=== PATIENT | male | born 1950 | race Caucasian/White ===

== ENCOUNTER 2017-10-07 01:43 | Emergency (ER) | payer MEDICARE, OTHER ==
[2017-10-07 02:15] LABS: BASOPHILS % (AUTO) 0.3 %; EOSINOPHILS # (AUTO) 0.1 10^3/uL (0.0-0.7); EOSINOPHILS % (AUTO) 0.8 %; HGB - HEMOGLOBIN 15.8 g/dL (14.0-18.0); LYMPHOCYTES # (AUTO) 0.8 10^3/uL (1.5-3.5); LYMPHOCYTES % (AUTO) 6.7 %; MEAN CORPUSCULAR HEMOGLOBIN 30.8 pg (27.0-31.0); MEAN CORPUSCULAR HGB CONC 34.3 g/dL (32.0-36.0); MEAN CORPUSCULAR VOLUME 89.9 fL (80.0-94.0); MONOCYTES # (AUTO) 0.8 10^3/uL (0.0-1.0); MONOCYTES % (AUTO) 6.5 %; NEUTROPHILS # (AUTO) 10.4 10^3/uL (1.5-6.6); NEUTROPHILS % (AUTO) 85.7 %; PLT - PLATELET COUNT 204 10^3/uL (130-450); RED BLOOD COUNT 5.14 10^6/uL (4.70-6.10); RED CELL DISTRIBUTION WIDTH 13.6 % (12.0-15.0); WHITE BLOOD COUNT 12.1 x10^3/uL (4.8-10.8)
[2017-10-07 02:25] LABS: ALBUMIN 4.2 g/dL (3.2-5.5); ALBUMIN/GLOBULIN RATIO 1.4 (1.0-2.2); BILIRUBIN,TOTAL 0.9 mg/dL (0.2-1.0); CALCIUM 9.2 mg/dL (8.5-10.3); CREATININE 0.7 mg/dL (0.6-1.2); MAGNESIUM 2.2 mg/dL (1.7-2.8); PHOSPHORUS 1.2 mg/dL (2.5-4.6); TOTAL PROTEIN 7.1 g/dL (6.7-8.2)
[2017-10-07 02:32] LABS: PLATELET ESTIMATE, MANUAL NORMAL (130-450,000) (NORMAL); PLATELET MORPHOLOGY 1+ GIANT PLATELETS (NORMAL)
[2017-10-07] MEDS ORDERED: IOPAMIDOL-300 100 ML VIAL ONE (02:41)
[2017-10-07 03:03] LABS: BILIRUBIN,URINE NEGATIVE (NEGATIVE); GLUCOSE, URINE (UA) NEGATIVE (NEGATIVE); KETONES,URINE (UA) NEGATIVE (NEGATIVE); LEUKOCYTE ESTERASE, URINE NEGATIVE (NEGATIVE); NITRITE,URINE NEGATIVE (NEGATIVE); OCCULT BLOOD,URINE NEGATIVE (NEGATIVE); PROTEIN,URINE NEGATIVE (NEGATIVE); UROBILINOGEN,URINE 0.2 (NORMAL) E.U./dL (NORMAL)
[2017-10-07 03:05] LABS: CLARITY,URINE CLEAR (CLEAR)
[2017-10-07] MEDS ORDERED: IOPAMIDOL-300 100 ML VIAL IVP ONE (03:06)
[2017-10-07] MEDS ORDERED: DICYCLOMINE 10 MG CAPSULE PO STA (03:14)
[2017-10-07] MEDS ORDERED: MORPHINE 10 MG/ML VIAL IVP STA (03:14)
--- NOTE | 2017-10-07 03:21 | CT Report ---
Procedure Date: 10/07/2017 Accession Number: [id number] / [id number] Procedure: CT - Abdomen/Pelvis W/ CPT Code: FULL RESULT: EXAM: CT ABDOMEN AND PELVIS EXAM DATE: 10/07/2017 02:48 AM. CLINICAL HISTORY: Pain in the lower abdomen and pelvis. Small bowel movements which appeared black and tarry. COMPARISONS: ABDOMEN/PELVIS W/ 09/24/2012. TECHNIQUE: Routine helical CT imaging was performed through the abdomen and pelvis. IV contrast: 100 ML ISOVUE 300. Enteric contrast: No. Reconstructions: Coronal and sagittal. In accordance with CT protocol optimization, one or more of the following dose reduction techniques were utilized for this exam: automated exposure control, adjustment of mA and/or KV based on patient size, or use of iterative reconstructive technique. FINDINGS: Lung Bases: Mild bibasilar atelectasis. Liver: Fatty infiltration. Gallbladder/Bile Ducts: Unremarkable. Spleen: Normal. Pancreas: Normal. Adrenal Glands: Right adrenal is unremarkable. Benign-appearing left adrenal nodule is unchanged. Kidneys: Left renal cysts are unchanged. No masses or hydronephrosis. Peritoneal Cavity/Bowel: No bowel obstruction seen. Colonic diverticula. Focal sigmoid wall thickening suspicious for diverticulitis. No abscess seen. No free air or free fluid. No lymphadenopathy. Appendix appears normal. Pelvic Organs: Normal. The bladder and visualized pelvic organs are within normal limits. Vasculature: Mild to moderate atherosclerosis. Infrarenal abdominal aortic aneurysm measuring 4.2 x 4.0 cm. Right common iliac artery dilatation measuring 1.9 cm. Bones: No significant abnormality. Other: None. IMPRESSION: 1. Colonic diverticula with focal sigmoid wall thickening suspicious for diverticulitis. 2. No abscess seen. 3. Fatty liver. 4. Infrarenal aortic aneurysm measuring 4.2 x 4.0 cm. RADIA
[2017-10-07] MEDS ORDERED: metroNIDAZOLE 250 MG TABLET PO STA (03:46)
[2017-10-07] MEDS ORDERED: CIPROFLOXACIN 250 MG TABLET PO STA (03:46)
--- NOTE | 2017-10-07 04:09 | ED Physician Documentation ---
PD HPI ABD PAIN - Stated complaint Stated Complaint: ABD CRAMPS - Chief complaint Chief Complaint: Abd Pain - History obtained from History obtained from: Patient - History of Present Illness Timing - onset: How many days ago (2) Timing - details: Gradual onset, Still present Quality: Cramping, Aching Location: Suprapubic Worsened by: Eating Associated symptoms: No: Fever, Nausea, Vomiting Similar symptoms before: Has not had sx before Recently seen: Not recently seen - Additional information Additional information: Patient is a 66 year old male presenting to the emergency department for abdominal pain. patient states that the pain has been going on for the last few days. patient states that he took a laxative a few days ago and then today he started to have diarrhea and severe abdominal cramping so he called ems. Review of Systems Constitutional: denies: Fever, Chills GI: reports: Abdominal Pain, Nausea, Diarrhea. denies: Vomiting : denies: Dysuria, Frequency PD PAST MEDICAL HISTORY - Past Medical History Past Medical History: Yes Cardiovascular: [place] Respiratory: None Endocrine/Autoimmune: None GI: GERD, GI bleed : None HEENT: None Psych: Depression, Anxiety, Panic attacks Musculoskeletal: None Derm: None - Past Surgical History Past Surgical History: Yes Ortho: Other Cardiovascular: Coronary stent - Present Medications Home Medications: Ambulatory Orders Medication Instructions Recorded Confirmed Omeprazole [Prilosec] 20 mg PO DAILY 09/24/12 10/04/14 Rosuvastatin [Crestor] 10 mg PO ONCE 09/24/12 10/04/14 diltiaZEM [Cardizem] 70 mg PO BID 09/24/12 10/04/14 Azithromycin [Zithromax] 250 mg PO DAILY #6 tablet 10/04/14 Hydrocodone/Acetaminophen 1 - 2 each PO Q6H PRN #15 tablet 10/04/14 [Hydrocodon-Acetaminophen 5-325] Ciprofloxacin HCl [Cipro] 500 mg PO BID #14 tablet 10/07/17 Hydrocodone/Acetaminophen 1 - 2 each PO Q6H PRN #14 tablet 10/07/17 [Hydrocodon-Acetaminophen 5-325] Metronidazole [Flagyl] 500 mg PO TID #21 tablet 10/07/17 Ondansetron Odt [Zofran] 4 mg TL Q6H PRN #14 tablet 10/07/17 - Allergies Allergies/Adverse Reactions: Allergies Allergy/AdvReac Type Severity Reaction Status Date / Time No Known Drug Allergies Allergy Verified 10/07/17 01:54 - Social History Does the pt smoke?: No Smoking Status: Never smoker Does the pt drink ETOH?: Yes Does the pt have substance abuse?: No - POLST Patient has POLST: No PD ED PE NORMAL - Vitals Vital signs reviewed: Yes - General General: Alert and oriented X 3 - HEENT HEENT: Atraumatic - Cardiac Cardiac: RRR - Respiratory Respiratory: No respiratory distress - Derm Derm: Normal color, Warm and dry - Extremities Extremities: No deformity - Neuro Neuro: Alert and oriented X 3, No motor deficit, Normal speech Eye Opening: Spontaneous PD ED PE EXPANDED - General General: Alert, Anxious - HEENT HEENT: Dry mucous membranes - Abdomen Abdomen: Tender to palpation, Generalized/diffuse. No: Rebound, Guarding Results - Vitals Vitals: Vital Signs - 24 hr 10/07/17 01:50 Temperature 36.5 C Heart Rate 94 Respiratory 18 Rate Blood Pressure 169/90 H O2 Saturation 98 Oxygen O2 Source Room air - Labs Labs: Laboratory Tests 10/07/17 10/07/17 10/07/17 02:05 02:05 02:05 WBC 12.1 H RBC 5.14 Hgb 15.8 Hct 46.2 MCV 89.9 MCH 30.8 MCHC 34.3 RDW 13.6 Plt Count 204 MPV 10.0 Neut # (Auto) 10.4 H Lymph # (Auto) 0.8 L [place] # (Auto) 0.8 Eos # (Auto) 0.1 Baso # (Auto) 0.0 Absolute Nucleated RBC 0.00 Nucleated RBC % 0.0 Platelet Estimate NORMAL (130-450,000) Platelet Morphology 1+ GIANT PLATELETS Sodium 137 Potassium 3.5 Chloride 102 Carbon Dioxide 25 Anion Gap 10.0 BUN 8 Creatinine 0.7 Estimated GFR (MDRD) 112 Glucose 137 H Lactic Acid 1.1 Calcium 9.2 Phosphorus 1.2 L Magnesium 2.2 Total Bilirubin 0.9 AST 17 ALT 10 Alkaline Phosphatase 61 Total Protein 7.1 Albumin 4.2 Globulin 2.9 Albumin/Globulin Ratio 1.4 Lipase 39 Urine Color Urine Clarity Urine pH Ur Specific [place] Urine Protein Urine Glucose (UA) Urine Ketones Urine Occult Blood Urine Nitrite Urine Bilirubin Urine Urobilinogen Ur Leukocyte Esterase Ur Microscopic Review Urine Culture Comments 10/07/17 02:55 WBC RBC Hgb Hct MCV MCH MCHC RDW Plt Count MPV Neut # (Auto) Lymph # (Auto) [place] # (Auto) Eos # (Auto) Baso # (Auto) Absolute Nucleated RBC Nucleated RBC % Platelet Estimate Platelet Morphology Sodium Potassium Chloride Carbon Dioxide Anion Gap BUN Creatinine Estimated GFR (MDRD) Glucose Lactic Acid Calcium Phosphorus Magnesium Total Bilirubin AST ALT Alkaline Phosphatase Total Protein Albumin Globulin Albumin/Globulin Ratio Lipase Urine Color YELLOW Urine Clarity CLEAR Urine pH 8.0 H Ur Specific [place] 1.010 Urine Protein NEGATIVE Urine Glucose (UA) NEGATIVE Urine Ketones NEGATIVE Urine Occult Blood NEGATIVE Urine Nitrite NEGATIVE Urine Bilirubin NEGATIVE Urine Urobilinogen 0.2 (NORMAL) Ur Leukocyte Esterase NEGATIVE Ur Microscopic Review NOT INDICATED Urine Culture Comments NOT INDICATED - Rads (name of study) ct abd and pelvis Radiology: Final report received (findings concerning for diverticulitis) PD MEDICAL DECISION MAKING - ED course Complexity details: reviewed old records, reviewed results, re-evaluated patient , considered differential, d/w patient ED course: Patient was seen and examined at bedside. IV access was gained and labs were drawn. imaging was ordered. patient was treated with morphine and zofran. When patient returned from imaging results were reviewed and consistent with diverticulits. patient was treated with cipro and flagyl. Patient had no significant leukocytosis or acidosis. patient was able to tolerate PO without difficulty and was appropriate for trial of outpatient antibiotics. Patient was given detailed discharge and follow up instructions. patient felt comfortable with the plan and was stable for discharge with outpatient follow up. - Sepsis Event Vital Signs: Vital Signs - 24 hr 10/07/17 01:50 Temperature 36.5 C Heart Rate 94 Respiratory 18 Rate Blood Pressure 169/90 H O2 Saturation 98 Oxygen O2 Source Room air Departure - Departure Disposition: 01 Home, Self Care Clinical Impression: Diverticulitis of gastrointestinal tract Condition: Good Instructions: Diverticulitis Dc Follow-Up: Cesar Maldonado MD [Primary Care Provider] - Tomorrow Prescriptions: Ciprofloxacin HCl [Cipro] 500 mg PO BID #14 tablet Hydrocodone/Acetaminophen [Hydrocodon-Acetaminophen 5-325] 1 - 2 each PO Q6H PRN #14 tablet PRN Reason: pain Metronidazole [Flagyl] 500 mg PO TID #21 tablet Ondansetron Odt [Zofran] 4 mg TL Q6H PRN #14 tablet PRN Reason: Nausea / Vomiting Comments: Your symptoms today are being caused by diverticulitis. You had your first dose of antibiotics today and will need to be on them for at least the next week. you should call your doctor tomorrow to schedule a follow up appointment within the next three days. you should start with a clear diet and slowly progress. You cannot drink alcohol while taking theses antibiotics. you are being prescribed percocet for pain. You cannot drink alcohol, take any other sedatives, drive or operate heavy machinery while taking it. You should return to the emergency department for new, worsening or uncontrollable symptoms.
[2017-10-07 05:32] VITALS: BP 169/88
== END 2017-10-07 04:30 | disposition home or self-care (01) ==
LOC: ED 01:43
DX: K57.92 Diverticulitis of intestine, part unspecified, without perforation or abscess without bleeding (principal); I25.2 Old myocardial infarction; Z95.5 Presence of coronary angioplasty implant and graft
CPT/HCPCS: 74177; 80053; 81003; 83605; 83690; 83735; 84100; 85025; 96374; 99283; 99284; A9270; Q9967; 36415; 81001; 87086

== ENCOUNTER 2017-11-01 18:06 | Outpatient (CLI) | payer MEDICARE ==
--- NOTE | 2017-11-02 03:13 | Ultrasound Report ---
Procedure Date: 11/01/2017 Accession Number: [id number] / [id number] Procedure: US - Abdomen Complete CPT Code: FULL RESULT: EXAM: ABDOMEN ULTRASOUND EXAM DATE: 11/01/2017 07:30 PM. CLINICAL HISTORY: ABDOMINAL PAIN. COMPARISON: CT, 10/07/2017. TECHNIQUE: Real-time scanning was performed with static images obtained. FINDINGS: Liver: Normal in size and echotexture. 14.4 cm. Main portal vein flow: Hepatopetal. Gallbladder: Normal. No stones, wall thickening, or sonographic Gabriel's sign. Biliary System: Common bile duct measures 5 mm. No intrahepatic or extrahepatic ductal dilatation. Pancreas: Visualized portion is unremarkable. Kidneys: Right: 10.0 cm longitudinally. Normal. No contour-deforming mass, stones, or hydronephrosis. Left: 10.7 cm longitudinally. Multiple cysts measuring up to 2.2 x 1.3 x 1.9 cm. No contour-deforming solid mass, stones, or hydronephrosis. Spleen: 11.3 cm. Normal in size and echotexture. Aorta and Inferior Vena Cava: Inferior vena cava appears patent where seen. Distal abdominal aortic aneurysm measuring 3.5 x 4.2 cm as previously seen. Other: None. IMPRESSION: 1. Again seen is distal abdominal aortic aneurysm measuring 3.5 x 4.2 cm. 2. Left renal cysts measuring up to 2.2 x 1.3 x 1.9 cm. 3. No acute abnormality seen. RADIA
== END 2017-11-01 18:07 | disposition home or self-care (01) ==
LOC: DI 18:06
PROVIDERS: ATTEND Internal Medicine
DX: R10.32 Left lower quadrant pain (principal); I71.4 Abdominal aortic aneurysm, without rupture; N28.1 Cyst of kidney, acquired
CPT/HCPCS: 76700

== ENCOUNTER 2018-10-16 20:38 | Emergency (ER) | payer MEDICARE, OTHER ==
--- NOTE | 2018-10-16 21:07 | ED Physician Documentation ---
History of Present Illness - Stated complaint Stated Complaint: FLU SX - Chief complaint Chief Complaint: General - History obtained from History obtained from: Patient - History of Present Illness Timing: How many days ago (3) Pain level max: 7 Pain level now: 7 - Additonal information Additional information: states chills, headache, cough for the past 3 days. worse with exertion, better with rest. Has not taken anything for this. has history of hypertension and past PA. not on meds except aspirin. no nausea or vomiting. Review of Systems Constitutional: reports: Fever (subjective) Nose: reports: Rhinorrhea / runny nose, Congestion Respiratory: reports: Cough GI: denies: Vomiting, Diarrhea Skin: denies: Rash Musculoskeletal: denies: Neck pain, Back pain Neurologic: reports: Headache PD PAST MEDICAL HISTORY - Past Medical History Past Medical History: Yes Cardiovascular: [place] Respiratory: None Endocrine/Autoimmune: None GI: GERD, GI bleed : None HEENT: None Psych: Depression, Anxiety, Panic attacks Musculoskeletal: None Derm: None - Past Surgical History Past Surgical History: Yes Ortho: Other Cardiovascular: Coronary stent - Present Medications Home Medications: Ambulatory Orders Medication Instructions Recorded Confirmed Omeprazole [Prilosec] 20 mg PO DAILY 09/24/12 10/16/18 Hydrocodone/Acetaminophen 1 - 2 each PO Q6H PRN #14 tablet 10/07/17 10/16/18 [Hydrocodon-Acetaminophen 5-325] Albuterol Sulf [Ventolin Hfa 1 - 2 puffs INH Q4HR PRN #1 inhaler 10/16/18 Inhaler] Aspirin [Children's Aspirin] 1 tab PO DAILY 10/16/18 10/16/18 Benzonatate [Tessalon Perle] 100 - 200 mg PO TID PRN #30 capsule 10/16/18 predniSONE [Prednisone] 40 mg PO DAILY #10 tablet 10/16/18 - Allergies Allergies/Adverse Reactions: Allergies Allergy/AdvReac Type Severity Reaction Status Date / Time No Known Drug Allergies Allergy Verified 10/16/18 20:56 - Social History Does the pt smoke?: No Smoking Status: Never smoker Does the pt drink ETOH?: Yes Does the pt have substance abuse?: No - Immunizations Immunizations are current?: No Immunizations: TDAP >10years/unknown - POLST Patient has POLST: No PD ED PE NORMAL - Vitals Vital signs reviewed: Yes - General General: Alert and oriented X 3, No acute distress - HEENT HEENT: Moist mucous membranes - Neck Neck: Supple, no meningeal sign - Cardiac Cardiac: RRR - Respiratory Respiratory: No respiratory distress, Other (Very diminished breath sounds bilaterally) - Abdomen Abdomen: Soft, Non tender, Non distended - Derm Derm: Warm and dry - Extremities Extremities: No edema - Neuro Neuro: Alert and oriented X 3 Results - Vitals Vitals: Vital Signs - 24 hr 10/16/18 10/16/18 10/16/18 20:41 21:00 21:30 Temperature 36.6 C Heart Rate 84 79 76 Respiratory 16 13 17 Rate Blood Pressure 132/90 H 158/104 H 151/91 H O2 Saturation 98 100 99 10/16/18 10/16/18 21:47 22:15 Temperature 36.5 C Heart Rate 82 78 Respiratory 12 22 Rate Blood Pressure 133/81 H O2 Saturation 97 Oxygen O2 Source Room air - EKG (time done) 2101 Rate: Rate (enter#) (81) Rhythm: NSR [place]: Normal Intervals: Normal [place] QRS: Normal Ischemia: Normal ST segments - Rads (name of study) cxr Radiology: Prelim report reviewed, EMP read contemporaneously, See rad report (No acute cardiopulmonary abnormality demonstrated. Increased lung volumes suggesting underlying obstructive pulmonary disease. ) PD MEDICAL DECISION MAKING - ED course Complexity details: reviewed results, re-evaluated patient, considered differential, d/w patient ED course: 67-year-old male with what appears to be a viral upper respiratory infection. He is well-appearing, nontoxic. Afebrile. Very diminished lung sounds, improved with albuterol and DuoNeb and prednisone. Chest x-ray is consistent with COPD. Does have a smoking history in the past. Will place on steroids and albuterol for home. Patient counseled regarding signs and symptoms for which I believe and urgent re-evaluation would be necessary. Patient with good understanding of and agreement to plan and is comfortable going home at this time This document was made in part using voice recognition software. While efforts are made to proofread this document, sound alike and grammatical errors may occur. Departure - Departure Disposition: 01 Home, Self Care Clinical Impression: COPD with acute exacerbation Condition: Good Instructions: ED COPD Flare Follow-Up: Cesar Maldonado MD [Primary Care Provider] - Within 1 week Prescriptions: Albuterol Sulf [Ventolin Hfa Inhaler] 1 - 2 puffs INH Q4HR PRN #1 inhaler PRN Reason: Shortness Of Air/Wheezing Benzonatate [Tessalon Perle] 100 - 200 mg PO TID PRN #30 capsule PRN Reason: Cough predniSONE [Prednisone] 40 mg PO DAILY #10 tablet Comments: Use the medications as prescribed. Return if you worsen. Follow-up with your doctor for further evaluation and care. Thankfully there is no pneumonia on your chest x-ray today.
[2018-10-16] MEDS ORDERED: ACETAMINOPHEN 325 MG TABLET PO STA (21:09)
[2018-10-16] MEDS ORDERED: IPRATROPIUM/ALBUTEROL 3 ML NEB INH STA (21:28)
[2018-10-16] MEDS ORDERED: predniSONE 20 MG TABLET PO STA (22:00)
[2018-10-16] MEDS ORDERED: ALBUTEROL NEB 2.5 MG/3 ML INH STA (22:00)
[2018-10-16] MEDS ORDERED: IBUPROFEN 800 MG TABLET PO STA (22:00)
--- NOTE | 2018-10-16 22:00 | XRAY Report ---
Reason: cough Procedure Date: 10/16/2018 Accession Number: [id number] / [id number] Procedure: XR - Chest 2 View X-Ray CPT Code: 16531 FULL RESULT: EXAM: CHEST RADIOGRAPHY. EXAM DATE: 10/16/2018 09:30 PM. CLINICAL HISTORY: Weakness, cough, not feeling right for the past 2-3 days. COMPARISON: None. TECHNIQUE: 2 views. FINDINGS: Lungs/Pleura: Lung volumes are increased with diaphragmatic flattening. No focal opacities evident. No pleural effusion. No pneumothorax. Normal volumes. Mediastinum: Cardiac silhouette is within normal limits when accounting for lung volumes and technique. Other: Nonspecific small sclerotic focus about the left humeral head measuring 13 mm. IMPRESSION: No acute cardiopulmonary abnormality demonstrated. Increased lung volumes suggesting underlying obstructive pulmonary disease. RADIA
[2018-10-16 22:38] VITALS: BP 133/89
== END 2018-10-16 22:38 | disposition home or self-care (01) ==
LOC: ED 20:38
DX: J44.1 Chronic obstructive pulmonary disease with (acute) exacerbation (principal); Z87.891 Personal history of nicotine dependence; I10 Essential (primary) hypertension; I25.2 Old myocardial infarction; Z79.82 Long term (current) use of aspirin
CPT/HCPCS: 71046; 99283; 99284; A9270; J7512

== ENCOUNTER 2020-02-21 09:41 | Outpatient (CLI) | payer MEDICARE, OTHER | END 2020-02-21 09:42 | disposition critical access hospital (66) | LOC: EMS 09:41 | PROVIDERS: ATTEND Surgery | DX: R07.9 Chest pain, unspecified (principal); R20.0 Anesthesia of skin | CPT/HCPCS: A0425; A0427 ==

== ENCOUNTER 2020-02-21 10:15 | Inpatient (IN) | payer MEDICARE, OTHER ==
[2020-02-21] MEDS ORDERED: ENOXAPARIN 60 MG/0.6 ML SYRINGE SUBQ STA (10:24)
--- NOTE | 2020-02-21 10:27 | ED Physician Documentation ---
PD HPI CHEST PAIN - Stated complaint Stated Complaint: CHEST PAIN - History obtained from History obtained from: Patient - Additional information Additional information: 69-year-old gentleman with history of coronary disease, had an SD 6 years ago with stents x2. Was kind of lost to follow-up earlier this year with his heel cementer machine because of coronavirus and stopped taking blood pressure and statins because of side effects. He also has a history of COPD from smoking but quit smoking when he was 49 years old. For the last 2 days he has had intermittent pretty typical rest pressure with dizziness and shortness of breath. He is pain-free currently. Review of Systems Ten Systems: 10 systems reviewed and negative Constitutional: denies: Fever, Chills Throat: denies: Dental pain / toothache, Sore throat Cardiac: reports: Chest pain / pressure. denies: Palpitations, Pedal edema, Calf pain Respiratory: reports: Dyspnea. denies: Cough GI: denies: Abdominal Pain, Nausea PD PAST MEDICAL HISTORY - Past Medical History Cardiovascular: [place] Respiratory: None Endocrine/Autoimmune: None GI: GERD, GI bleed : None HEENT: None Psych: Depression, Anxiety, Panic attacks Musculoskeletal: None Derm: None - Past Surgical History Past Surgical History: Yes Ortho: Other Cardiovascular: Coronary stent - Present Medications Home Medications: Ambulatory Orders Medication Instructions Recorded Confirmed Omeprazole [Prilosec] 20 mg PO DAILY 09/24/12 02/21/20 Albuterol Sulf [Ventolin Hfa 1 - 2 puffs INH Q4HR PRN #1 inhaler 10/16/18 02/21/20 Inhaler] Aspirin [Children's Aspirin] 1 tab PO DAILY 10/16/18 02/21/20 predniSONE [Prednisone] 40 mg PO DAILY #10 tablet 10/16/18 - Allergies Allergies/Adverse Reactions: Allergies Allergy/AdvReac Type Severity Reaction Status Date / Time No Known Drug Allergies Allergy Verified 02/21/20 10:28 - Social History Does the pt smoke?: No Smoking Status: Never smoker Does the pt drink ETOH?: Yes Does the pt have substance abuse?: No - Immunizations Immunizations are current?: No Immunizations: TDAP >10years/unknown - POLST Patient has POLST: No PD ED PE NORMAL - Vitals Vital signs reviewed: Yes - General General: Alert and oriented X 3, No acute distress - HEENT HEENT: PERRL, EOMI - Neck Neck: Supple, no meningeal sign, No bony TTP - Cardiac Cardiac: RRR, No murmur - Respiratory Respiratory: No respiratory distress, Clear bilaterally - Abdomen Abdomen: Normal bowel sounds, Soft, Non tender - Back Back: No CVA TTP, No spinal TTP - Derm Derm: Normal color, Warm and dry - Extremities Extremities: No edema, No calf tenderness / cord - Neuro Neuro: Alert and oriented X 3, No motor deficit, No sensory deficit, Normal speech - Psych Psych: Normal mood, Normal affect Results - Vitals Vitals: Vital Signs - 24 hr 02/21/20 10:14 Temperature 36.6 C Heart Rate 87 Respiratory 11 L Rate Blood Pressure 167/85 H O2 Saturation 98 Oxygen O2 Source Room air - EKG (time done) 1024 Rate: Rate (enter#) (79) Rhythm: NSR [place]: RAD Intervals: Normal [place] QRS: Normal Ischemia: Normal ST segments Computer interpretation: Agree with computer - Labs Labs: Laboratory Tests 02/21/20 02/21/20 02/21/20 10:39 10:39 10:39 WBC 6.6 RBC 5.25 Hgb 16.5 Hct 48.3 MCV 92.0 MCH 31.4 H MCHC 34.2 RDW 13.9 Plt Count 197 MPV 11.1 Neut # (Auto) 4.4 Lymph # (Auto) 1.4 L [place] # (Auto) 0.5 Eos # (Auto) 0.2 Baso # (Auto) 0.1 Absolute Nucleated RBC 0.00 Nucleated RBC % 0.0 Sodium 141 Potassium 4.1 Chloride 107 Carbon Dioxide 26 Anion Gap 8.0 BUN 8 Creatinine 0.8 Estimated GFR (MDRD) 96 Glucose 101 H Calcium 9.5 Total Bilirubin 0.8 AST 17 ALT 14 Alkaline Phosphatase 51 Troponin I High Sens 5.2 Total Protein 6.9 Albumin 4.1 Globulin 2.8 Albumin/Globulin Ratio 1.5 Lipase 40 - Rads (name of study) 1v chest Radiology: EMP read contemporaneously (hyperexpansion, NAD) PD MEDICAL DECISION MAKING - ED course ED course: 69-year-old gentleman with known coronary disease presents with pretty typical rest pain that is intermittent for the last couple of days. No objective evidence of ischemia by EKG or initial enzymes. He was administered some beta- riya and Lovenox here. He got aspirin on the way here. He was pain-free throughout his ED stay. Case was discussed by phone with Dr. Barraza, on-call for his heel cementer machine, Dr. Quezada. Recommended obs stay for rule out and stress. Spoke with Dr. Diaz for same at 12:22 PM. Departure - Departure Disposition: ED Place in Observation Clinical Impression: Chest pain Qualifiers: Chest pain type: unspecified Qualified Code(s): R07.9 - Chest pain, unspecified Condition: Stable
[2020-02-21 10:47] LABS: BASOPHILS # (AUTO) 0.1 10^3/uL (0.0-0.1); BASOPHILS % (AUTO) 0.8 %; EOSINOPHILS # (AUTO) 0.2 10^3/uL (0.0-0.7); EOSINOPHILS % (AUTO) 3.2 %; HGB - HEMOGLOBIN 16.5 g/dL (14.0-18.0); LYMPHOCYTES # (AUTO) 1.4 10^3/uL (1.5-3.5); LYMPHOCYTES % (AUTO) 20.8 %; MEAN CORPUSCULAR HEMOGLOBIN 31.4 pg (27.0-31.0); MEAN CORPUSCULAR HGB CONC 34.2 g/dL (32.0-36.0); MEAN PLATELET VOLUME 11.1 fL (7.4-11.4); MONOCYTES # (AUTO) 0.5 10^3/uL (0.0-1.0); MONOCYTES % (AUTO) 8.1 %; NEUTROPHILS # (AUTO) 4.4 10^3/uL (1.5-6.6); NEUTROPHILS % (AUTO) 66.8 %; PLT - PLATELET COUNT 197 10^3/uL (130-450); RED BLOOD COUNT 5.25 10^6/uL (4.70-6.10); RED CELL DISTRIBUTION WIDTH 13.9 % (12.0-15.0); WHITE BLOOD COUNT 6.6 x10^3/uL (4.8-10.8)
--- NOTE | 2020-02-21 10:47 | XRAY Report ---
PROCEDURE: Chest 1 View X-Ray INDICATIONS: Chest Pain TECHNIQUE: 2 AP views of the chest acquired. COMPARISON: Chest radiographs 10/16/2018 FINDINGS: Surgical changes and devices: None. Lungs and pleura: No pleural effusions or pneumothorax. Lungs are mildly hyperexpanded and clear. Mediastinum: Mediastinal contours appear normal. Heart size is normal. Bones and chest wall: No suspicious bony lesions. Overlying soft tissues appear unremarkable. IMPRESSION: No acute cardiopulmonary abnormality. Mildly hyperexpanded lungs can be seen in the setting of COPD. Reviewed by: Adi Jama MD on 02/21/2020 9:45 AM [facility] Approved by: Adi Jama MD on 02/21/2020 9:45 AM [facility] Station ID: [id number]
[2020-02-21 11:01] LABS: ALBUMIN 4.1 g/dL (3.2-5.5); ALBUMIN/GLOBULIN RATIO 1.5 (1.0-2.2); BILIRUBIN,TOTAL 0.8 mg/dL (0.2-1.0); CALCIUM 9.5 mg/dL (8.5-10.3); CREATININE 0.8 mg/dL (0.6-1.2); TOTAL PROTEIN 6.9 g/dL (6.7-8.2)
[2020-02-21 12:27] LABS: C. PNEUMONIAE- RESP PCR PANEL NOT DETECTED
[2020-02-21] MEDS ORDERED: ONDANSETRON 4 MG/2 ML VIAL IVP PRN (12:48)
[2020-02-21] MEDS ORDERED: SODIUM CHLORIDE FLUSH 0.9% 10 ML SYRINGE IVP PRN (12:48)
[2020-02-21] MEDS ORDERED: ALBUTEROL NEB 2.5 MG/3 ML INH PRN (13:25)
--- NOTE | 2020-02-21 17:18 | PHARMACY PROGRESS NOTE ---
- Best Possible Medication History Admit Date and Time: 02/21/20 1248 Processed by: Pharmacy Medication History completed: Yes Patient Interview: Completed Secondary Source(s): Insurance records As the person ultimately responsible for medication therapy, providers are able to order a medication from an existing home medication list in [facility] via the "Reconcile Routine" prior to Confirmation of that medication by it application support analyst. Such practice is discouraged except when the physician, in their clinical judgment, deems that a medical need exists for a medication without regard to previous use.
[2020-02-21] MEDS: SODIUM CHLORIDE FLUSH 0.9% 10 ML SYRINGE IVP SCH ×2 (17:30→23:55)
[2020-02-21] MEDS: NITROGLYCERIN 2% PASTE TOP SCH ×2 (17:31→23:55)
[2020-02-21] MEDS: ACETAMINOPHEN 325 MG TABLET PO PRN ×2 (17:45→21:56)
--- NOTE | 2020-02-21 20:23 | HISTORY & PHYSICAL EXAMINATION ---
DATE OF SERVICE: 02/21/2020 Physician: Velma Diaz MD HISTORY OF PRESENT ILLNESS: This is a 69-year-old white male with a history of coronary artery disease with an SD 6 years ago that led to coronary stenting. He stated that his anginal symptoms continued for several weeks after that and a repeat angiogram was eventually done and he did need a second stent. After that, his anginal symptoms subsided. Approximately 6-12 months ago, he stopped his statin and his other medication, (presumably his metoprolol); stopped the statin because it gave him malaise and possibly also the other one. He was scheduled to see a new document reviewer for management in Apr of this year, but then the COVID pandemic began and that cardiology office visit was canceled and has not been rescheduled. The patient is usually very active, does all his own errands and active around the house. Approximately a week ago, he started to develop similar symptoms as he had with his SD, which were waxing and waning chest pressure that can last for approximately 15 seconds and has associated shortness of breath and lightheadedness, occurring after he "over did it". He took some old NTG sublingual which helped. One of the episodes of lightheadedness made him have near syncope with a blackout of vision and he held onto his appliance and was able to recover without syncope, then laid down on the couch and felt better that day. He has been taking his aspirin continuously throughout this time. He made sure to take extra Baby aspirin during one of the days where he felt specifically bad, which was 3 days ago. He continued to have those symptoms yesterday and then finally today, on day #3 with these episodes, came to the ER. The emergency room doctor reached out to his covering document reviewer regarding this presentation of accelerating angina and the document reviewer advised that the patient undergo a stress test here rather than be sent directly for coronary angiogram. The patient denies any CHF symptoms such as orthopnea or leg edema. He denies palpitations. There is no dyspnea on exertion unless he has a COPD exacerbation and he uses inhalers only p.r.n. ALLERGIES: ATORVASTATIN, which caused possible myalgias by his report. MEDICATIONS: 1. Baby aspirin daily. 2. Omeprazole 20 mg daily. 3. He used to be on metoprolol, but stopped this approximately 6-12 months ago. 4. He used to be on Lipitor, but stopped this about 6-12 months ago. 5. There is occasional use of inhalers, but they are not currently refilled. FAMILY HISTORY: Multiple family members have early coronary artery disease in their 50s. There is a history of dyspepsia in several family members as well. SOCIAL HISTORY: The patient is an ex-smoker who quit 10 years ago. There is no alcohol abuse history. He uses no illicit drugs. He lives alone, is a , his 6 years ago of cancer. REVIEW OF SYSTEMS: A comprehensive review of systems was performed and the pertinent positives are listed, the rest are negative. PHYSICAL EXAM: GENERAL: Cachectic white male who has had 3 episodes of his waxing and waning anginal type symptoms of chest pressure while we are having this discussion; one was associated with a hot flash/diaphoresis, another was associated with shortness of breath and the third was associated with lightheadedness and during that time, his palpable pulse radially did decrease somewhat in amplitude. VITAL SIGNS: Blood pressure 130/80, heart rate 80-85 in sinus rhythm. He is afebrile. On room air his O2 saturation is 97%. HEENT: Reveals cachexia. Oral mucosa is moist. He has good dentition. NECK: No JVD in a vertical position. No carotid bruits. CHEST: Clear. HEART: Normal heart sounds without murmurs. ABDOMEN: Soft, nontender. No organomegaly. EXTREMITIES: No clubbing, cyanosis or edema. NEUROLOGIC: Grossly intact. LABORATORY DATA: Normal electrolytes. Normal BUN and creatinine. First high sensitivity-troponin is 5.2, the next is 8.7. Normal liver tests and lipase. CBC within normal limits. No urinalysis was done. No INR was done. He has a COVID test that is negative. EKG: Normal sinus rhythm and he has a vertical axis of 90 degrees, left atrial enlargement, no ST or T-wave changes. Since the last EKG, the axis is more vertical and no other new changes are present. CHEST X-RAY: No acute cardiopulmonary abnormality is seen except mildly hyperexpanded lungs. IMPRESSION\\DIAGNOSES: 1. Unstable angina pectoris, he has acceleration of his typical anginal symptoms and they are occurring at rest. 2. History of coronary artery disease and stent. 3. Old myocardial infarction. 4. STATIN ALLERGY. 5. History of chronic obstructive pulmonary disease. PLAN: Place the patient in Observation status on telemetry. Watch for arrhythmias, especially during the episodes of lightheadedness. Start topical nitroPaste at 0.25 or 0.5 inches topically q.6h. If this suppresses the symptoms, recommend proceeding to a stress test, as recommended by his document reviewer. Otherwise, if there is no improvement, then he would need transfer to the ICU for IV nitroglycerin drip and then management with direct transfer for coronary angiography. This plan was discussed with the patient, he is agreeable to plan. Start Lovenox, at DVT prophylaxis dose, increase to therapeutic dose if there are accelerating symptoms. Continue with his daily aspirin, hold the statin because of his side effects, hold beta riya because of episodes of lightheadedness, which may be hypotension. Check a fasting lipid panel in a.m. DEEP VENOUS THROMBOSIS PROPHYLAXIS: Pharmacotherapy. CODE STATUS: FULL CODE. ATTESTATION: Patient is expected to be discharged or transferred to another facility within 96 hours: Yes. cc: MD Jony Ordoñez MD TD: 02/21/2020 20:08 [email or web address]
[2020-02-21] MEDS: FAMOTIDINE 20 MG TABLET PO SCH (21:13)
[2020-02-21] MEDS: METOPROLOL TARTRATE 25 MG TABLET PO SCH (21:13)
[2020-02-22] MEDS: IBUPROFEN 400 MG TABLET PO PRN ×2 (01:01→11:16)
[2020-02-22] MEDS: NITROGLYCERIN 2% PASTE TOP SCH ×3 (05:07→17:44)
[2020-02-22 05:11] LABS: CHOL/HDL RATIO 4.8 (<5.0); CHOLESTEROL 224 mg/dL; HDL CHOLESTEROL 47 mg/dL; LDL CHOLESTEROL,CALCULATED 161 mg/dL; LDL/HDL RATIO 3.4 (<3.6); VLDL CHOLESTEROL 16 mg/dL
[2020-02-22] MEDS: METOPROLOL TARTRATE 25 MG TABLET PO SCH ×2 (07:44→22:54)
[2020-02-22] MEDS: ASPIRIN CHEW 81 MG TABLET PO SCH (08:53)
[2020-02-22] MEDS: FAMOTIDINE 20 MG TABLET PO SCH ×2 (08:53→22:01)
[2020-02-22] MEDS: SODIUM CHLORIDE FLUSH 0.9% 10 ML SYRINGE IVP SCH ×2 (08:53→16:18)
[2020-02-22] MEDS ORDERED: ENOXAPARIN 40 MG/0.4 ML SYRINGE SUBQ SCH ×2 (09:00→21:00)
--- NOTE | 2020-02-22 18:25 | Nuclear Medicine Report ---
PROCEDURE: Rest and exercise myocardial perfusion SPECT with gated imaging and ejection fraction INDICATIONS: chest pain RADIOPHARMACEUTICAL: 8.5 mCi Tc-99m Myoview IV at rest and 24.5 mCi Tc-99m Myoview IV at peak exerci se. [id number] was performed. TECHNIQUE: Radiopharmaceutical was injected at peak stress test, and also at rest. SPECT images wer e obtained. SPECT myocardial perfusion images were displayed in short axis, horizontal long axis, an d vertical long axis views. Gated images were reviewed using Auto[employer] software. COMPARISON: None available. FINDINGS: Raw data: There is good myocardial labeling by radiotracer. No significant motion artifacts. Lung- to-heart ratio is 0.26 (normal is less than 0.38 for tetrafosmin tracer). Left ventricle function: Gated images demonstrate normal left ventricle wall thickening. No segment al wall motion abnormality. No transient ischemic dilation; TID is 1.29 (normal less than 1.3). The left ventricle resting end-diastolic volume is normal. Left ventricle stress ejection fraction is 5 1%; normal values are above 45%. Myocardial perfusion: There is normal distribution of activity in the left and right ventricular jorge cardium. No fixed or reversible perfusion defects. IMPRESSION: 1. Normal myocardial perfusion images. No perfusion defect to suggest myocardial ischemia or infarct. 2. Normal left ventricular volume and ejection fraction. There is borderline abnormal TID (transient ischemic dilation) score. TID in the absence of perfusion defect may be associated with balanced trip le-vessel coronary artery disease. Recommend clinical correlation. 3. Please correlate with stress EKG result. PQRS ATTESTATIONS: Measure 322 - Is this imaging test primarily performed on a low-risk surgery patient for preoperative evaluation within 30 days preceding their low-risk non-cardiac surgery? Low-risk surgery is defined as cardiac or myocardial infarction less than 1%, including (but not limited to) endoscopic pr ocedures, superficial procedures, cataract surgery, and excisional breast surgery: Answer: No Measure 323 - Is this imaging test performed primarily for the monitoring of an asymptomatic patient who had percutaneous coronary intervention on the visit date or within 2 years of the visit date? An swer: No Measure 324 - Is this imaging test performed primarily for the initial detection and risk assessment on an asymptomatic, low coronary heart disease patient? Low CHD risk definition = clinicians should consider the maximum number of available patient factors used to estimate risk based on [place] (A TP III criteria), typically age, gender, diabetes, smoking status, and use of blood pressure medicati on, and integrate age appropriate estimates for missing elements, such as LDL or standard blood press ure. Answer: No Reviewed by: George Evangelista MD on 02/22/2020 6:24 PM PST Approved by: George Evangelista MD on 02/22/2020 6:24 PM PST Station ID: [id number]
[2020-02-22] MEDS ORDERED: NITROGLYCERIN SL 0.4 MG TABLET SL PRN (18:35)
--- NOTE | 2020-02-22 18:37 | PROVIDER PROGRESS NOTE ---
Assessment/Plan - Problem List (1) Unstable angina pectoris Assessment/Plan: Yesterday starting nitro paste helped relieve his resting angina quickly and he had no more during the night. He then developed a headache and by 4 AM he wanted the Nitropaste discontinued. He underwent his stress test today which was abnormal showing transient ischemic dilatation and balanced perfusion which means balanced three-vessel significant coronary artery disease is present. Patient knew that there was 1 significant lesion left, after his last angio when he needed stenting of 2 blood vessels, 6 years ago. He will not be discharged, will make him an Inpatient for further management of angina, which was accelerating and unstable. Will resume a statin, resume meds for blood pressure control (and will choose beta-riya for post OR management), continue aspirin and start sublingual nitroglycerin prn, stop the NTPaste. Will work on getting him transferred for coronary angiogram in the morning (2) History of heart artery stent Assessment/Plan: He underwent stenting when he had his angiogram 6 to 7 years ago. He has not had cardiology follow-up since that time, was supposed to reestablish with a new system configuration specialist in 2019 then it was all postponed because of Covid. Patient used to be on metoprolol which she stopped on its own and stopped statin because of side effects, presumably myalgias. He has continued on his aspirin and he has "old bottles of nitro glycerin s ublingual". Will resume metoprolol, statin in the form of pravastatin, continue aspirin and proceed to stress testing>>done earlier today (3) Old OR (myocardial infarction) Assessment/Plan: As per history. (4) Allergy to statin medication Assessment/Plan: As per his description. (5) Hypertension, uncontrolled Assessment/Plan: Patient had very elevated blood pressures during the stress test, 1 60-1 70 at rest and went over 200 with exercise. Nitrates and beta-blockers will be resumed (6) Hyperlipidemia LDL goal <70 Assessment/Plan: The patient has not taken a statin for many years. His LDL is greater than 160. I reviewed proper diet and have ordered a dietitian consult to help him with this. I advised that he take a water-soluble statin, pravastatin which is less likely to give myalgias. The patient agrees. Also as an outpatient, he could take co-Q10 for myalgia treatment. If pravastatin continues to be a problem, then at least red yeast rice should be used, which I discussed with him. (7) Hot flash in male Assessment/Plan: We will check a morning total testosterone level. Further work-up needs to be done as an outpatient with his PCP, he was told. (8) Cachexia Assessment/Plan: Patient admitted to me that when his 6 years ago, he stopped taking care of himself, did not eat the right things, stopped taking his medications as described above and did not care if he . Over the last 2 years he has had a better disposition, never had suicidal ideations he says. Dietary consult ordered. (9) COPD without exacerbation Assessment/Plan: As needed inhaler ordered - Current Meds Current Meds: Current Medications Generic Name Dose Route Start Last Admin Trade Name Freq PRN Reason Stop Dose Admin Acetaminophen 650 mg 02/21/20 12:48 02/21/20 21:56 Acetaminophen 325 Mg Tablet PO 650 mg Q4HR PRN Administration Pain 1 to 4 Albuterol 2.5 mg 02/21/20 13:25 02/21/20 15:58 Albuterol Neb 2.5 Mg/3 Ml INH 2.5 mg Q4HR PRN Administration Shortness of Air/Wheezing Aspirin 81 mg 02/22/20 09:00 02/22/20 08:53 Aspirin Chew 81 Mg Tablet PO 81 mg DAILY VANESSA Administration Enoxaparin Sodium 40 mg 02/22/20 09:00 02/22/20 08:53 Enoxaparin 40 Mg/0.4 Ml Syringe SUBQ Not Given DAILY VANESSA Famotidine 20 mg 02/21/20 21:00 02/22/20 08:53 Famotidine 20 Mg Tablet PO 20 mg BID VANESSA Administration Ibuprofen 400 mg 02/22/20 00:48 02/22/20 11:16 Ibuprofen 400 Mg Tablet PO 400 mg Q6HR PRN Administration PAIN Metoprolol Tartrate 12.5 mg 02/21/20 21:00 02/22/20 07:44 Metoprolol Tartrate 25 Mg Tablet PO Not Given BID VANESSA Sodium Chloride 10 ml 02/21/20 17:00 02/22/20 16:18 Sodium Chloride Flush 0.9% 10 Ml Syringe IVP 10 ml 0100,0900,1700 VANESSA Administration - Lab Result Fish Bone Diagrams: 02/21/20 10:39 02/21/20 10:39 - Additional Planning My Orders: My Active Orders 02/21/20 21:00 Famotidine [Pepcid] 20 mg PO BID Metoprolol Tartrate [Lopressor] 12.5 mg PO BID 02/22/20 09:00 Aspirin Chewable [St Mychal Aspirin] 81 mg PO DAILY Enoxaparin [Lovenox] 40 mg SUBQ DAILY 02/22/20 10:49 Nutrition Consult [CONS] Routine 02/22/20 Lunch DIET [Regular Diet] [DIET] 02/22/20 18:22 Telemetry- [RC] Q4HR 02/22/20 18:35 Nitroglycerin [Nitrostat] 0.4 mg SL Q5MIN PRN 02/22/20 21:00 Metoprolol Succinate [Toprol Xl] 12.5 mg PO BID Pravastatin [Pravachol] 40 mg PO QPM 02/23/20 Breakfast DIET [Cardiac Diet] [DIET] Subjective - Subjective Patient Reports: Feeling Better (He felt better in the morning, he did have an episode of resting chest pressure several hours after having the stress test in the afternoon. He does not want to stay on Nitropaste, it is giving him a headache not relieved with Tylenol.) Objective Vital Signs: Vital Signs - 24 hr 02/21/20 02/21/20 02/22/20 20:05 21:13 00:00 Temperature 36.5 C 36.4 C L Heart Rate [ 72 Brachial] Heart Rate [ 80 Monitoring electrodes] Respiratory 16 16 Rate Blood Pressure 135/90 H Blood Pressure 135/90 H 138/80 H [Right Brachial artery] O2 Saturation 96 96 02/22/20 02/22/20 02/22/20 04:00 08:17 16:00 Temperature 36.5 C 36.6 C 36.7 C Heart Rate [ 74 76 95 Brachial] Heart Rate [ Monitoring electrodes] Respiratory 20 18 18 Rate Blood Pressure Blood Pressure 143/91 H 139/86 H 138/84 H [Right Brachial artery] O2 Saturation 97 97 97 Oxygen O2 Source Room air I&O (Last 24 Hrs): Intake and Output Totals x24h 02/20/20 02/21/20 02/22/20 23:59 23:59 23:59 Intake Total 240 Output Total 300 Balance -60 General: Alert, Oriented x3, Other (Cachectic) HEENT: Atraumatic, Mucous membr. moist/pink Neck: Supple, No JVD Neuro: Alert, Non Focal Cardiovascular: Regular rate, No murmurs Abdomen: Normal bowel sounds, Soft Extremities: No edema - Results Results: Laboratory Results WBC 6.6 x10^3/uL (4.8-10.8) 02/21/20 10:39 RBC 5.25 10^6/uL (4.70-6.10) 02/21/20 10:39 Hgb 16.5 g/dL (14.0-18.0) 02/21/20 10:39 Hct 48.3 % (42.0-52.0) 02/21/20 10:39 MCV 92.0 fL (80.0-94.0) 02/21/20 10:39 MCH 31.4 pg (27.0-31.0) H 02/21/20 10:39 MCHC 34.2 g/dL (32.0-36.0) 02/21/20 10:39 RDW 13.9 % (12.0-15.0) 02/21/20 10:39 Plt Count 197 10^3/uL (130-450) 02/21/20 10:39 MPV 11.1 fL (7.4-11.4) 02/21/20 10:39 Neut # (Auto) 4.4 10^3/uL (1.5-6.6) 02/21/20 10:39 Lymph # (Auto) 1.4 10^3/uL (1.5-3.5) L 02/21/20 10:39 Todd # (Auto) 0.5 10^3/uL (0.0-1.0) 02/21/20 10:39 Eos # (Auto) 0.2 10^3/uL (0.0-0.7) 02/21/20 10:39 Baso # (Auto) 0.1 10^3/uL (0.0-0.1) 02/21/20 10:39 Absolute Nucleated RBC 0.00 x10^3/uL 02/21/20 10:39 Nucleated RBC % 0.0 /100WBC 02/21/20 10:39 Sodium 141 mmol/L (135-145) 02/21/20 10:39 Potassium 4.1 mmol/L (3.5-5.0) 02/21/20 10:39 Chloride 107 mmol/L (101-111) 02/21/20 10:39 Carbon Dioxide 26 mmol/L (21-32) 02/21/20 10:39 Anion Gap 8.0 (6-13) 02/21/20 10:39 BUN 8 mg/dL (6-20) 02/21/20 10:39 Creatinine 0.8 mg/dL (0.6-1.2) 02/21/20 10:39 Estimated GFR (MDRD) 96 (>89) 02/21/20 10:39 Glucose 101 mg/dL (70-100) H 02/21/20 10:39 Calcium 9.5 mg/dL (8.5-10.3) 02/21/20 10:39 Total Bilirubin 0.8 mg/dL (0.2-1.0) 02/21/20 10:39 AST 17 IU/L (10-42) 02/21/20 10:39 ALT 14 IU/L (10-60) 02/21/20 10:39 Alkaline Phosphatase 51 IU/L (42-121) 02/21/20 10:39 Troponin I High Sens 8.7 ng/L (2.3-19.7) 02/21/20 13:20 Total Protein 6.9 g/dL (6.7-8.2) 02/21/20 10:39 Albumin 4.1 g/dL (3.2-5.5) 02/21/20 10:39 Globulin 2.8 g/dL (2.1-4.2) 02/21/20 10:39 Albumin/Globulin Ratio 1.5 (1.0-2.2) 02/21/20 10:39 Triglycerides 81 mg/dL (-149) 02/22/20 04:30 Cholesterol 224 mg/dL (-199) H 02/22/20 04:30 LDL Cholesterol, Calc 161 mg/dL (-129) H 02/22/20 04:30 VLDL Cholesterol 16 mg/dL 02/22/20 04:30 HDL Cholesterol 47 mg/dL (60-) L 02/22/20 04:30 LDL/HDL Ratio 3.4 (<3.6) 02/22/20 04:30 Cholesterol/HDL Ratio 4.8 (<5.0) 02/22/20 04:30 Lipase 40 U/L (22-51) 02/21/20 10:39 Nasal Adenovirus (PCR) NOT DETECTED 02/21/20 11:27 Nasal B. parapertussis DNA (PCR) NOT DETECTED 02/21/20 11:27 Nasal Coronavir 229E PCR NOT DETECTED 02/21/20 11:27 Nasal Coronavir HKU1 PCR NOT DETECTED 02/21/20 11:27 Nasal Coronavir NL63 PCR NOT DETECTED 02/21/20 11:27 Nasal Coronavir OC43 PCR NOT DETECTED 02/21/20 11:27 Nasal Enterovir/Rhinovir PCR NOT DETECTED 02/21/20 11:27 Nasal Influenza B PCR NOT DETECTED 02/21/20 11:27 Nasal Influenza A PCR NOT DETECTED 02/21/20 11:27 Nasal Parainfluen 1 PCR NOT DETECTED 02/21/20 11:27 Nasal Parainfluen 2 PCR NOT DETECTED 02/21/20 11:27 Nasal Parainfluen 3 PCR NOT DETECTED 02/21/20 11:27 Nasal Parainfluen 4 PCR NOT DETECTED 02/21/20 11:27 Nasal RSV (PCR) NOT DETECTED 02/21/20 11:27 Nasal B.pertussis DNA PCR NOT DETECTED 02/21/20 11:27 Nasal C.pneumoniae (PCR) NOT DETECTED 02/21/20 11:27 Bhanu Human Metapneumo PCR NOT DETECTED 02/21/20 11:27 Nasal M.pneumoniae (PCR) NOT DETECTED 02/21/20 11:27 Nasal SARS-CoV-2 (PCR) NOT DETECTED 02/21/20 11:27
[2020-02-22] MEDS ORDERED: PRAVASTATIN 40 MG TABLET PO SCH (21:00)
[2020-02-22] MEDS ORDERED: traZODone 50 MG TABLET PO SCH (21:00)
[2020-02-22] MEDS: METOPROLOL SUCCINATE 25 MG TABLET PO SCH (22:02)
[2020-02-23] MEDS: SODIUM CHLORIDE FLUSH 0.9% 10 ML SYRINGE IVP SCH ×2 (00:45→08:16)
[2020-02-23] MEDS: METOPROLOL SUCCINATE 25 MG TABLET PO SCH (08:15)
[2020-02-23] MEDS: FAMOTIDINE 20 MG TABLET PO SCH (08:16)
[2020-02-23] MEDS: ASPIRIN CHEW 81 MG TABLET PO SCH (08:16)
[2020-02-23] MEDS: ACETAMINOPHEN 325 MG TABLET PO PRN ×2 (08:23→13:05)
[2020-02-23] MEDS ORDERED: polyethylene glycoL 3350 17 GM PACKET PO SCH (08:30)
--- NOTE | 2020-02-23 11:11 | CARDIAC PROCEDURE NOTE ---
DATE OF SERVICE: 02/22/2020 Physician: Velma Diaz MD INDICATION: Chest pain. CARDIAC RISK FACTORS: Male gender, hypertension untreated, cholesterol untreated, remote ex-smoker, family history of heart disease at early age. This patient had an old SC and CAD with stenting done approx. 6-7 years ago. DESCRIPTION OF PROCEDURE: After signing informed consent, the patient underwent a Ziggy-protocol treadmill stress test with nuclear myocardial perfusion imaging. RESTING HEART RATE: 83. PEAK HEART RATE: 140 (93% predicted maximum heart rate for age). RESTING BLOOD PRESSURE: 165/107. PEAK BLOOD PRESSURE: 195/105. The patient exercised for 4 minutes and 6 seconds on a Ziggy-protocol treadmill stress test. He achieved a peak heart rate of 140 (93% PMHR) and 6 METS. The patient developed shortness of breath at the end of stage 1 and was very short of breath at peak. He rated his perceived exertion at 19/20 on the Clary scale at peak. He developed his typical (mild) chest pressure at peak, which resolved after 1 minute of recovery. Oxygen saturation was 95-98% on room air throughout the test. In late recovery, he had brief right-sided pleuritic chest pain. RESTING EKG: Normal sinus rhythm, vertical axis, LVH voltage. EKG AT PEAK: No new ST segment or T-wave abnormalities. SUMMARY: 1. Abnormal resting EKG with evidence of LVH. 2. Uncontrolled hypertension and slow recovery of blood pressure after rest. 3. Poor exercise tolerance. 4. No EKG changes developed to suggest ischemia. 5. Nuclear images reported separately and showed: Transient ischemic dilation (1.29), no reperfusion defects, therefore balanced, 3-vessel CAD is suspected. IMPRESSION: 1. Abnormal stress test. RECOMMENDATION: 1. This patient was admitted from Observation status to Inpatient, and will have arrangements made for transfer for coronary angiogram. cc: Jony Quezada MD TD: 02/22/2020 15:48 MTDD
--- NOTE | 2020-02-23 12:38 | DISCHARGE SUMMARY ---
Discharge Summary Admit Date: 02/21/20 Discharge Date: 02/23/20 Discharging Provider: Dr Velma Diaz Primary Care Provider: Dr Cesar Maldonado Code Status: Attempt Resuscitation Condition at Discharge: Stable Discharge Disposition: 02 Transfer Acute Care Hosp Discharge Facility Name: [facility] History of Present Illness: This is a 69-year-old white male with a history of coronary artery disease, OK 6 years ago that led to coronary stenting. His anginal symptoms continued for several weeks after that and a repeat angiogram was eventually done and he did need a second stent. After that his anginal symptoms subsided. About a year ago he stopped his Lipitor due to malaise and stopped metoprolol because he admittedly was depressed over the of his . He stopped following a cardiac diet. A week ago he started to develop symptoms like his old angina that waxed and waned for about an hour, after he "over did it". He took doses of old, sublingual nitroglycerin, which helped. Over the last 3 days, the symptoms have been happening even at rest. He took extra baby aspirin on those days. With this happening today, day 3, he came to the ER. The EKG shows normal sinus rhythm, vertical axis which is new from his prior EKG, but no ST or T wave changes. The first troponin was 5.2, the next was 8.7. The emergency room doctor reached out to his covering hydraulic rockbreaker operator regarding this presentation of accelerating angina and the hydraulic rockbreaker operator advised that the patient undergo stress test here rather than be sent directly for coronary angiogram. The patient is being admitted to Observation status for treatment of angina and to have a stress test. I spoke to this patient regarding his Code wishes and he wishes to be a Full Code. - HOSPITAL COURSE Hospital Course: (1) Unstable angina pectoris He was kept on aspirin, put on Lovenox and Nitro paste, which helped relieve his resting angina quickly. He then developed a headache and by 4 AM he wanted the Nitropaste discontinued. He underwent his stress test which was abnormal: he developed chest pain, had minimal scooping ST changes and the nuclear scan milly wed transient ischemic dilatation suggesting balanced three-vessel significant coronary artery disease present. Patient knew that there was 1 significant lesion left, after his last angio when he needed restenting 6 years ago. He was made an Inpatient for further management of angina (he had another episode of typical angina at rest, needed sl NTG for relief). We restarted a statin, and resumed meds for blood pressure control choosing a beta-riya for post [place] management as well. He was accepted for transfer to [facility] for a coronary angiogram, and transferred by ambulance in stable condition. (2) History of heart artery stent He underwent stenting when he had his angiogram 6 to 7 years ago. He has not had cardiology follow-up since that time, was supposed to reestablish with a new hydraulic rockbreaker operator in 2019 then it was all postponed because of Covid. Patient used to be on metoprolol which she stopped on his own and stopped statin because of side effects, presumably myalgias. (3) Old OK (myocardial infarction) As per history. (4) Allergy to statin medication As per his description. (5) Hypertension, uncontrolled Patient had very elevated blood pressures during the stress test: 160-170 at rest which alfonso over 200 with exercise. Nitrates and beta-blockers were ordered. (6) Hyperlipidemia LDL goal <70 The patient has not taken a statin for many years. He had a fasting lipid panel and his LDL was greater than 160. I reviewed proper diet and ordered a dietitian consult to help him too. I ordered pravastatin which is less likely to give myalgias. Also as an outpatient, he could take co-Q10 for myalgia treatment. If pravastatin continues to be a problem, then at least red yeast rice should be used, which I discussed with him. (7) Hot flash in male We checked a morning total testosterone level. Further work-up needs to be done as an outpatient with his PCP, he was told. (8) Cachexia Patient admitted that when his 6 years ago, he stopped taking care of himself, did not eat the right things, stopped taking his medications as described above and did not care if he . Over the last 2 years he has had a better disposition, never had suicidal ideations he said. Dietary consult ordered. (9) COPD without exacerbation PRN inhalers were ordered. - ALLERGIES Allergies/Adverse Reactions: Allergies Allergy/AdvReac Type Severity Reaction Status Date / Time atorvastatin [From Lipitor] AdvReac Unknown Verified 02/21/20 16:33 - MEDICATIONS Home Medications: Ambulatory Orders Medication Instructions Recorded Confirmed Omeprazole [Prilosec] 20 mg PO QDAC 09/24/12 02/21/20 Aspirin EC [Ecotrin] 81 mg PO DAILY 02/21/20 02/21/20 - PHYSICAL EXAM AT DISCHARGE General Appearance: positive: No acute distress, Alert Eyes Bilateral: positive: Normal inspection, EOMI ENT: positive: ENT inspection nml, No signs of dehydration Neck: positive: Nml inspection, No JVD Respiratory: positive: No respiratory distress, Breath sounds nml Cardiovascular: positive: Regular rate & rhythm, No murmur Abdomen: positive: Non-tender, Nml bowel sounds, No distention Skin: positive: Warm, Dry Extremities: positive: Non-tender, No pedal edema Neurologic/Psychiatric: positive: Oriented x3, Motor nml - LABS Result Diagrams: 02/21/20 10:39 02/21/20 10:39 - DIAGNOSTIC IMAGING Diagnostic Imaging Results: Final report reviewed - FOLLOW UP Follow Up: This will be determined after his stay at [facility]. - TIME SPENT Time Spent in Discharge (Minutes): 45
--- NOTE | 2020-02-23 12:38 | Discharge Plan ---
Discharge Plan Problem Reviewed?: Yes Disposition: 02 Transfer Acute Care Hosp Condition: Stable No Smoking: If you smoke, Please STOP! Call for help. Follow-up with: Cesar Maldonado MD [Primary Care Provider] -
[2020-02-23 12:50] VITALS: BP 120/72
== END 2020-02-23 14:00 | disposition short-term general hospital (02) | DRG 303 ==
LOC: EDBD → ED 10:15 → MS3 12:48 → OBSVTOIN 02-22 18:16
PROVIDERS: ADMIT Internal Medicine; ATTEND Internal Medicine
DX: I25.110 Atherosclerotic heart disease of native coronary artery with unstable angina pectoris (principal); J44.9 Chronic obstructive pulmonary disease, unspecified; I10 Essential (primary) hypertension; E78.5 Hyperlipidemia, unspecified; K21.9 Gastro-esophageal reflux disease without esophagitis; T44.7X6A Underdosing of beta-adrenoreceptor antagonists, initial encounter; T46.6X6A Underdosing of antihyperlipidemic and antiarteriosclerotic drugs, initial encounter; Z91.128 Patient's intentional underdosing of medication regimen for other reason; Y92.009 Unspecified place in unspecified non-institutional (private) residence as the place of occurrence of the external cause; Z88.8 Allergy status to other drugs, medicaments and biological substances; Z20.828 Contact with and (suspected) exposure to other viral communicable diseases; I25.2 Old myocardial infarction; Z87.891 Personal history of nicotine dependence; Z95.5 Presence of coronary angioplasty implant and graft; Z79.82 Long term (current) use of aspirin; Z79.51 Long term (current) use of inhaled steroids; Z79.52 Long term (current) use of systemic steroids
CPT/HCPCS: 36415; 71045; 78452; 80053; 80061; 83690; 84403; 84484; 85025; 93005; 93017; 94640; 96372; 99285; A9270; A9500; G0378; J1650; 0202U; 83721

== ENCOUNTER 2020-02-23 13:44 | Outpatient (CLI) | payer MEDICARE, OTHER | END 2020-02-23 13:45 | disposition short-term general hospital (02) | LOC: EMS 13:44 | PROVIDERS: ATTEND Surgery | DX: I20.0 Unstable angina (principal) | CPT/HCPCS: A0425; A0426 ==

== ENCOUNTER 2021-07-02 08:56 | Outpatient (CLI) | payer MEDICARE, OTHER | END 2021-07-02 08:57 | disposition short-term general hospital (02) | LOC: EMS 08:56 | DX: R07.9 Chest pain, unspecified (principal); R06.02 Shortness of breath; R10.31 Right lower quadrant pain; R10.32 Left lower quadrant pain; K92.1 Melena; R19.7 Diarrhea, unspecified | CPT/HCPCS: A0425; A0427 ==

== ENCOUNTER 2021-09-03 16:39 | Outpatient (CLI) | payer MEDICARE, OTHER | END 2021-09-03 16:40 | disposition short-term general hospital (02) | LOC: EMS 16:39 | DX: R06.02 Shortness of breath (principal); R50.9 Fever, unspecified; R05.9 Cough, unspecified | CPT/HCPCS: A0425; A0427 ==